=== PATIENT | male | born 1980 | race Caucasian/White ===

== ENCOUNTER 2019-08-25 20:56 | Emergency (ER) | payer SELFPAY ==
[~2019-08-25] VITALS: Ht 175.3 cm; Wt 73.0 kg
[2019-08-26] MEDS ORDERED: SODIUM CHLORIDE 0.9% 1,000 ML IV ONE (00:05)
[2019-08-26] MEDS ORDERED: KETOROLAC 30MG/ML VIAL IV STA (00:05)
[2019-08-26 00:29] LABS: BASOPHILS % 0.7 % (0.0-2.0); EOSINOPHILS % 0.3 % (0.0-5.0); HEMATOCRIT. 45.9 % (42.0-52.0); HEMOGLOBIN. 15.6 g/dL (14.0-18.0); LYMPHOCYTES % 27.8 % (20.0-50.0); MEAN CORPUSCULAR VOLUME 105.7 fL (80.0-94.0); MEAN PLATELET VOLUME 6.3 fl (7.4-10.4); MONOCYTES % 8.9 % (2.0-8.0); NEUTROPHILS % 62.3 % (40.0-76.0); PLATELET 400 x1000/uL (130-400); RED BLOOD CELL COUNT 4.35 mill/uL (4.7-6.1); RED CELL DISTRIBUTION WIDTH 16.1 % (11.6-14.6)
[2019-08-26 00:35] LABS: CHLORIDE 108 mEq/L (98-107)
[2019-08-26 00:47] LABS: ETHANOL BLOOD 351 mg/dL
[2019-08-26 02:22] VITALS: BP 134/88
== END 2019-08-26 02:27 | disposition home or self-care (01) ==
LOC: ER 20:56
DX: F10.129 Alcohol abuse with intoxication, unspecified (principal); Y90.8 Blood alcohol level of 240 mg/100 ml or more; M25.511 Pain in right shoulder
CPT/HCPCS: 36415; 71045; 73030; 80053; 80320; 85025; 96374; 99284; J1885; J7030; Z7610; G0480